=== PATIENT | male | born 1960 | race Caucasian/White ===

== ENCOUNTER 2016-12-05 08:29 | Day surgery (SDC) | payer OTHER ==
[2016-12-05] MEDS ORDERED: LIDOCAINE 1% 2 ML INJ ID PRN (08:48)
[2016-12-05] MEDS ORDERED: LR 1,000 ML IV ONE (08:48)
--- NOTE | 2016-12-05 09:04 | PDANEPAE ---
ANE History of Present Illness screening ANE Past Medical History - Cardiovascular History Hx Hypertension: Yes Hx Arrhythmias: No Hx Chest Pain: No Hx Coronary Artery / Peripheral Vascular Disease: No Hx CHF / Valvular Disease: No Hx Palpitations: No - Pulmonary History Hx COPD: No Hx Asthma/Reactive Airway Disease: No Hx Recent Upper Respiratory Infection: No Hx Oxygen in Use at Home: No Hx Sleep Apnea: No Sleep Apnea Screening Result - Last Documented: Positive - Neurologic History Hx Cerebrovascular Accident: No Hx Seizures: No Hx Dementia: No - Endocrine History Hx Diabetes: No - Renal History Hx Renal Disorders: No - Liver History Hx Hepatic Disorders: No - Neurological & Psychiatric Hx Hx Neurological and Psychiatric Disorders: Yes Neurological / Psychiatric History Comment: BJ BARRE, PAIN LOWER CALVES - Cancer History Hx Cancer: Yes Cancer History Comment: PROSTATE - Congenital Disorder History Hx Congenital Disorders: No - GI History Hx Gastrointestinal Disorders: Yes Gastrointestinal History Comment: BLEEDING WITH BM, - Other Health History Other Health History: NONE - Chronic Pain History Chronic Pain: Yes (LOWER LEGS) - Surgical History Prior Surgeries: PROSTATE 2 YRS AGO,. ACL X 2 RIGHT SHOULDER. RETORE ACL ANE Review of Systems Review of Systems: - Exercise capacity METS (RN): 5 METS ANE Patient History - Allergies Allergies/Adverse Reactions: BEE STINGS Allergy (Severe, Uncoded 12/04/16 16:44) Anaphylaxis SHELLFISH Allergy (Intermediate, Uncoded 12/04/16 16:44) Hives - Home Medications Home Medications: Lisinopril/Hydrochlorothiazide 12/04/16 [Last Taken 1 Day Ago ~12/04/16] - NPO status NPO Since - Liquids (Date): 12/04/16 NPO Since - Liquids (Time): 23:15 NPO Since - Solids (Date): 12/04/16 NPO Since - Solids (Time): 08:00 - Smoking Hx Smoking Status: Never smoked - Family Anes Hx Family Hx Anesthesia Complications: NONE ANE Labs/Vital Signs - Vital Signs Blood Pressure: 132/100 Heart Rate: 65 Respiratory Rate: 18 O2 Sat (%): 95 Height: 185.42 cm Weight: 90.718 kg ANE Physical Exam - Airway Neck exam: FROM Mallampati Score: Class 1 Mouth exam: normal dental/mouth exam - Pulmonary Pulmonary: no respiratory distress - Cardiovascular Cardiovascular: regular rate and rhythym - ASA Status ASA Status: II ANE Anesthesia Plan Total IV Anesthesia: Yes
--- NOTE | 2016-12-05 09:13 | PDGENHP ---
History & Physical Chief Complaint: follow up of piecemeal polypectomy Relevant Physical Exam: GEN: NAD. Cardiac: RRR. Lungs: CTA B. Abd: Soft, nt, nd
[2016-12-05 09:14] LABS: HEMATOCRIT 48.1 % (40.0-51.0); HEMOGLOBIN 16.8 g/dL (13.7-17.5)
[2016-12-05 09:34] LABS: ANION GAP 11 mEq/L (8-16); CALCIUM 10.6 mg/dL (8.5-10.4); CARBON DIOXIDE 25 mEq/l (22-31); CHLORIDE 104 mEq/L (97-110); CREATININE 1.1 mg/dL (0.7-1.3); GLOMERULAR FILTRATION RATE > 60; GLUCOSE 112 mg/dL (70-100); POTASSIUM 4.2 mEq/L (3.5-5.2); SODIUM 140 mEq/L (134-144)
[2016-12-05] MEDS ORDERED: PROPOFOL/EMULSION 500 MG/50 ML BOTTLE IV ONE (10:10)
[2016-12-05] MEDS ORDERED: NALOXONE HCL 0.4 MG/ML INJ IVP PRN (10:14)
--- NOTE | 2016-12-05 10:37 | POSTANESTH ---
Post Anesthetic Evaluation Cardiovascular Status: Normal, Stable Respiratory Status: Normal, Stable Level of Consciousness/Mental Status: Can Participate in Eval Pain Control: Adequate, Prn Tx Ordered Nausea/Vomiting Control: Adequate, Prn Tx Ordered Complications Possibly Related to Anesthesia: None Noted
--- NOTE | 2016-12-05 10:45 | GIREPORT ---
[facility] - Endoscopy Department Patient Name: Derick Sanchez Procedure Date: 12/05/2016 10:13 AM Patient Type: Outpatient Attending MD/ ER Physician: Abhinav Ayoub MD Procedure: Colonoscopy Indications: High risk colon cancer surveillance: Personal history of colonic polyps . His last colonoscopy was in Feb 2016 (multiple SSA's were removed at that t varsha). Providers: Abhinav Ayoub MD Medicines: Monitored Anesthesia Care Complications: No immediate complications. Description of Procedure: After obtaining informed consent, the scope was passed under direct vision. Throughout the proce dure, the patient's blood pressure, pulse, and oxygen saturations were monitored continuously. The Colonoscope with irrigation channel was introduced through the anus and advanced to the terminal ileum, with identification of the appendiceal orifice and IC valve. The colonoscopy was performe d without difficulty. The patient tolerated the procedure well. The quality of the bowel preparati on was good. Findings: The perianal and digital rectal examinations were normal. The terminal ileum appeared normal. A 2 mm polyp was found in the cecum. The polyp was sessile. The polyp was removed with a cold bi opsy forceps. Resection and retrieval were complete. Verification of patient identification for the specimen was done by the physician and nurse using the patient's name and date. Estimated blood loss was minimal. The mucosa vascular pattern in the rectum was locally consistent with moderate radiation proctit is. No additional abnormalities were found on retroflexion. Estimated Blood Loss: Estimated blood loss: none. Post Op Diagnosis: - The examined portion of the ileum was normal. - One 2 mm polyp in the cecum, removed with a cold biopsy forceps. Rese cted and retrieved. - Consistent with radiation proctitis. mucosa vascular pattern in the r ectum. Recommendation: - Discharge patient to home (with escort). - Resume previous diet. - Continue present medications. - Repeat colonoscopy in 3 years for surveillance (history of multiple p olyps (SSA's) removed 6 months ago). He will again need to be scheduled with propofol (MAC) anesthesia. - Await pathology results. Results are available within 10 days. - Thank you for allowing me to participate in the care of your patient. Attending Participation: I personally performed the entire procedure. Abhinav Ayoub MD Abhinav Ayoub MD 12/05/2016 10:45:08 AM Number of Addenda: 0 Note Initiated On: 12/05/2016 10:13 AM Total Procedure Duration Time 0 hours 13 minutes 55 seconds [email or web address]
[2016-12-05 10:48] VITALS: TEMP 97.7
[2016-12-05 11:08] VITALS: RESP 17
[2016-12-05 11:17] VITALS: BP 130/89; PULSE 67
[2016-12-05 11:38] VITALS: O2SAT 98
== END 2016-12-05 11:42 | disposition home or self-care (01) ==
LOC: FSGY 08:29
PROVIDERS: ATTEND Internal Medicine Gastroenterology
PROC: 0DBH8ZX Excision of Cecum, Via Natural or Artificial Opening Endoscopic, Diagnostic (ICD-10-PCS; principal; 2016-12-05 10:00)
DX: K63.5 Polyp of colon (principal); K62.7 Radiation proctitis; Z86.010 Personal history of colon polyps; Z85.46 Personal history of malignant neoplasm of prostate
CPT/HCPCS: J2704